=== PATIENT | male | born 1945 | race Caucasian/White ===

== ENCOUNTER 2020-05-05 17:17 | Emergency (ER) | payer OTHER, SELFPAY ==
[2020-05-05 17:18] VITALS: BP 149/80; PULSE 121; RESP 18; TEMP 36.2; O2SAT 93; BMI 35.8
--- NOTE | 2020-05-05 17:32 | EKG12_ITS ---
Test Reason : CP Blood Pressure : / mmHG Vent. Rate : 118 BPM Atrial Rate : 118 BPM P-R Int : 188 ms QRS Dur : 078 ms QT Int : 316 ms P-R-T Axes : 064 -22 035 degrees QTc Int : 442 ms Sinus tachycardia Otherwise normal ECG Confirmed by FRAN ZAMORA, LAKEISHA ([id number]), editorial director KAYLAH PATEL ([id number]) on 05/07/2020 12:43:47 PM Referred By: BB Confirmed By:LAKEISHA PETERS MD
[2020-05-05 17:33] VITALS: O2SAT 95
--- NOTE | 2020-05-05 17:33 | ED.DCSUM_ITS ---
History of Present Illness Chief Complaint: Chest Pain Informant: Patient Onset: Month(s) - few Activity at onset: Rest - Random Timing: Intermittent, Lasts - Several minutes Quality: Aching Location: Left Chest - And into left shoulder but not down arm Current Severity: Gone Maximum Severity: Mild Worsened By: Nothing. Not Worsened By: Breathing Relieved By: - - When I pat my left chest with my right hand. Associated Symptoms: Negative for: Nausea, Vomiting, Diaphoresis, Dyspnea, Cough, Fever, Lightheadedness, Palpitations Narrative: Patient states he has been having brief episodes of nonpleuritic left-sided chest aching for the past several months, without any associated symptoms. He takes his hand and passes left chest for 30-60 seconds and states that seems to help it go away. He has had no palpitations, lightheadedness or near syncopal episodes from this, no other systemic symptoms such as dyspnea, malaise, sweating for no good reason. They do not seem to be triggered by anything, they occur randomly. [facility] and they diverted him to the emergency department. He states he feels fine right now. He denies any recent travel, leg pain or swelling, no history of DVT or PE. He states he occasionally has taken an aspirin or 2 when he gets the discomfort but he does not take it regularly. Prior Similar Symptoms: No Recent Illness/Hospitalization: No CVD Risk Factors: Diabetes, - - Former smoker. Negative for: Hypertension, Hypercholesterolemia, Family History 1' </=55 PE Risk Factors: Negative for: Recent Travel/Surgery, Recenet Immobilization, Prior DVT or PE, Cancer, OCP + Smoking + >/=35 - Past Medical History (1) Cancer, colon Status: Chronic (2) Diabetes mellitus Status: Chronic (3) Dyslipidemia Status: Chronic Past Medical History - Allergies and Home Meds Allergies/Adverse Reactions: Allergies shellfish derived Allergy (Verified 05/05/20 17:17) Anaphylaxis tetanus and diphtheria toxoids [tetanus & diphtheria toxoids] Allergy (Verified 05/05/20 17:17) Rash Primary Care Physician: [facility] Doctor,Out of [NON-STAFF] - Surgical History: - - Right hemicolectomy Lives: Alone Smoking Status: Former smoker - Family History Paternal Family History: Reports: Cancer - His father had colon cancer Review of Systems General: Denies: Chills, Fever, Sweats Eyes: Denies: Visual changes - bilaterally, Diplopia ENT: Denies: Rhinorrhea, Sore throat Cardiovascular: Reports: Chest pain - See HPI. Not present now.. Denies: Palpitations, Heart racing Respiratory: Denies: Dyspnea, Cough, Dyspnea on exertion, Orthopnea Gastrointestinal: Denies: Abdominal pain, Nausea, Vomiting, Diarrhea, Melena, Hematochezia Genitourinary: Denies: Dysuria, Hematuria, Frequency Musculoskeletal: Denies: Myalgias, Back pain, Swelling, Extremity Pain Skin: Denies: Rash, Wounds Neurological: Denies: Headache, Weakness, Numbness Physical Exam Vital Signs/Narrative: Vital Signs Temp Pulse Resp BP Pulse Ox 05/05/20 17:18 97.1 F L 121 H 18 149/80 H 93 Inital Vital Signs reviewed: Yes General: Well nourished, Well developed, No Acute Distress Head: Normocephalic, Atraumatic Eyes: Perrl, EOMI ENT: Moist mucous membranes, No rhinorrhea Neck: Supple, Nontender Cardiovascular: Regular rate, Regular rhythm, No murmurs, Tachycardia Respiratory: No distress, CTA bilaterally, Chest nontender Abdomen: Soft, Nontender, Nondistended, Normal bowel sounds Back: Nontender, Normal Inspection Extremities: Nontender, No edema. Negative for: Calf Tenderness Skin: Normal color, No rash, No Trauma Neurological: Alert, Oriented x3, Cranial nerves II-XII grossly intact, Normal Strength, Normal Sensation Psychological: Normal affect, Normal Mood Diagnostic/Tx/Re-eval Chest X-Ray - ED: 1 View, Read by ED Physician, No Acute Disease Impressions Chest X-Ray 05/05/20 17:38 IMPRESSION: Normal x-ray examination of the chest. Electronically Signed: Niki Patel MD at 18:09 EST Tel , Service support , 05/05/20 17:38 Chest 1 View (Portable) [RAD] Stat Laboratory Results 05/05/20 05/05/20 05/05/20 17:26 17:26 20:16 WBC 9.5 RBC 4.85 Hgb 15.6 Hct 47.4 MCV 97.7 H MCH 32.2 H MCHC 32.9 RDW Std Deviation 41.7 RDW Coeff of Albert 11.6 Plt Count 376 MPV 9.5 Immature Gran % (Auto) 0.300 Neut % (Auto) 72.8 H Lymph % (Auto) 15.3 L Sunflower % (Auto) 8.4 Eos % (Auto) 2.8 Baso % (Auto) 0.4 Absolute Neuts (auto) 6.9 Absolute Lymphs (auto) 1.45 Nucleated RBC % 0 Sodium 134 L Potassium 4.4 Chloride 101 Carbon Dioxide 24.0 Anion Gap 9 BUN 18 Creatinine 1.24 Estim Creat Clear Calc 45.46 Est GFR (MDRD) Af Amer 73 Est GFR (MDRD) Non-Af 61 BUN/Creatinine Ratio 14.5 Glucose 459 H* Calcium 9.0 Troponin I < 0.015 POC Glucose 228 H - Rhythm Strip Rhythm Strip: Sinus Tach Rate: 118 Ectopy: None - EKG Initial EKG Interpretation: No Acute Injury Pattern, Sinus Tachycardia, - - leftward axis Prior: Unchanged Repeat Eval: Pain Free JOSE ROBERTO Risk: Age >/= 65 Score: 1 - Medical Decision Making Patient was observed in the ER, he did not have any recurrent episodes of chest discomfort or any other symptoms that were acute, nor did he have any telemetry events that were notable. He did have significant hyperglycemia so we given insulin and kept an eye on for little while, repeating until it was in the low 200s. I think given his normal cardiac work-up acutely, and the history which I think is low risk for acute coronary syndrome, that he is safe [facility]. His heart score is 3, for age and risk. ED Disposition - Plan for ED Patient: Disposition: Home or Assisted Living Diagnosis: Intermittent left-sided chest pain, Hyperglycemia due to type 2 diabetes mellitus Instructions: ED Chest Pain, Uncertain Cause, ED Diabetic Hyperglycemia Referrals: [facility] Doctor,Out of [NON-STAFF] - As soon as possible ([facility]) Additional Instructions: Take baby aspirin daily.
[2020-05-05] MEDS: Aspirin 81 MG TAB.CHEW 324 MG PO (17:37)
--- NOTE | 2020-05-05 17:38 | RAD_ITS ---
STUDY: X-RAY CHEST REASON FOR EXAM: Male, 74 years old. INTERMITTENT CHEST PAIN LASTING MINUTES X 3 WEEKS. TECHNIQUE: Single AP portable view of the chest. COMPARISON: 06/13/2014. FINDINGS: The lungs are clear and expanded. There is no demonstrated pleural abnormality. Normal size heart. Normal mediastinum and nikia. Normal visualized pulmonary arteries. Normal visualized aortic arch and descending thoracic aorta. Normal visualized thoracic spine. Normal visualized ribs, clavicles, and shoulders. There is no demonstrated abnormality of the visualized soft tissue structures of the upper abdomen. RAD/Chest 1 View (Portable) IMPRESSION: Normal x-ray examination of the chest. Electronically Signed: Niki Patel MD at 18:09 EST Tel , Service support ,
[2020-05-05 17:40] LABS: Absolute Lymphocyte Count 1.45 X10^3/uL (0.83-4.51); Absolute Neutrophil Count 6.9 X10^3/uL (2.0-7.7); Basophil# 0.04 X10^3/uL; Basophil% 0.4 % (0-1); Eosinophil# 0.27 X10^3/uL; Eosinophils% 2.8 % (0-5); Hematocrit 47.4 % (40-54); Hemoglobin 15.6 g/dL (13.0-16.5); Lymphocyte # 1.45 X10^3/ul (4.0); Lymphocyte % 15.3 % (19-41); Mean Corp Hgb Conc 32.9 g/dL (32-36); Mean Corpuscular Hgb 32.2 pg (27.0-32.0); Mean Corpuscular Volume 97.7 fL (80-94); Mean Platelet Vol. 9.5 fl (6.2-12.0); Monocyte% 8.4 % (0-10); NRBC Flagged by Analyzer 0 % (0-5); Neutrophil % 72.8 % (47-70); Platelet Count 376 K/mm3 (150-450); RBC Distribution Width CV 11.6 % (11.6-14.6); RBC Distribution Width SD 41.7 fl (35.1-43.9); Red Blood Count 4.85 M/mm3 (4.6-6.2); White Blood Count 9.5 K/mm3 (4.4-11.0)
[2020-05-05 18:02] LABS: Anion Gap 9 (5-15); BUN 18 mg/dL (7-18); BUN/Creat Ratio 14.5 RATIO (10-20); Chloride 101 mmol/L (98-107); Creatinine, Serum 1.24 mg/dL (0.70-1.30); EST Glomerular Filtration Rate 61 mL/min (>60); Est Glom Filt Rate - Afr Amer 73 mL/min (>60); Estimated Creatinine Clearance 45.46 ml/min; Glucose 459 mg/dL (74-106); Potassium 4.4 mmol/L (3.5-5.1); Sodium Level 134 mmol/L (136-145)
[2020-05-05] MEDS: 0.9% Normal Saline 1,000 ML 999 ML IV (18:05)
[2020-05-05] MEDS: Insulin Lispro 100 UNIT/ML INSULN.PEN 10 UNIT SC (18:10)
[2020-05-05 18:56] VITALS: BP 124/79; PULSE 98; RESP 18; O2SAT 97
[2020-05-05 19:24] VITALS: BP 128/77; PULSE 91; RESP 14; O2SAT 96
[2020-05-05 20:26] LABS: Bedside Glucose 228 mg/dL (70-110)
[2020-05-05 21:11] VITALS: BP 123/74; PULSE 96; RESP 17; O2SAT 95
== END 2020-05-05 21:12 | disposition home or self-care (01) ==
PROVIDERS: Emergency Provider Emergency Medicine
DX: R07.89 Other chest pain (principal); E11.65 Type 2 diabetes mellitus with hyperglycemia; E78.5 Hyperlipidemia, unspecified; Z87.891 Personal history of nicotine dependence; Z79.4 Long term (current) use of insulin; Z79.899 Other long term (current) drug therapy
CPT/HCPCS: 71045; 80048; 82962; 84484; 85025; 93005; 96360; 99285; J7030; A4216

== ENCOUNTER 2021-10-12 01:18 | Emergency (ER) | payer OTHER, SELFPAY ==
[2021-10-12 01:19] VITALS: BP 150/59; PULSE 55; RESP 20; TEMP 36.2; O2SAT 96; BMI 40.9
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
--- NOTE | 2021-10-12 01:38 | EKG12_ITS ---
Test Reason : DYSRYTHMIA Blood Pressure : / mmHG Vent. Rate : 112 BPM Atrial Rate : 112 BPM P-R Int : 178 ms QRS Dur : 086 ms QT Int : 358 ms P-R-T Axes : -07 -11 029 degrees QTc Int : 488 ms Sinus tachycardia with frequent Premature ventricular complexes Otherwise normal ECG Confirmed by FRAN ZAMORA, LAKEISHA ([id number]), commissioning editor KAYLAH PATEL ([id number]) on 10/13/2021 1:07:30 PM Referred By: DIXIE Confirmed By:LAKEISHA PETERS MD
[2021-10-12 02:06] LABS: Absolute Lymphocyte Count 1.26 X10^3/uL (0.83-4.51); Absolute Neutrophil Count 8.3 X10^3/uL (2.0-7.7); Basophil# 0.04 X10^3/uL; Basophil% 0.4 % (0-1); Eosinophil# 0.46 X10^3/uL; Eosinophils% 4.1 % (0-5); Hematocrit 39.8 % (40-54); Hemoglobin 13.7 g/dL (13.0-16.5); Lymphocyte # 1.26 X10^3/ul (0.83-4.51); Lymphocyte % 11.2 % (19-41); Mean Corp Hgb Conc 34.4 g/dL (32-36); Mean Corpuscular Hgb 33.6 pg (27.0-32.0); Mean Corpuscular Volume 97.5 fL (80-94); Mean Platelet Vol. 9.8 fl (6.2-12.0); Monocyte# 1.07 X10^3/uL; Monocyte% 9.5 % (0-10); NRBC Flagged by Analyzer 0 % (0-5); Neutrophil # 8.34 X10^3/uL (2.7-7.7); Neutrophil % 74.4 % (47-70); Platelet Count 274 K/mm3 (150-450); RBC Distribution Width CV 12.3 % (11.6-14.6); RBC Distribution Width SD 44.3 fl (35.1-43.9); Red Blood Count 4.08 M/mm3 (4.6-6.2); White Blood Count 11.2 K/mm3 (4.4-11.0)
[2021-10-12 02:22] LABS: Bacteria 0 SEEN /hpf (None Seen); Mucous, Urine 0 SEEN /hpf (<or=2+); Red Blood Cells-Urine 0 SEEN /hpf (0-5); Squamous Epithelial Cells - UA 0 SEEN /hpf (0-5); White Blood Cells 0 SEEN /hpf (0-5)
[2021-10-12 02:23] LABS: Color, Urine Yellow (Yellow); Glucose, Dipstick 1000 mg/dl (Normal); Ketone-Dipstick Negative (Negative); Leukocyte Esterase-Dipstick Negative /ul (Negative); Nitrite-Dipstick Negative (Negative); Occult Blood-Urine Negative /ul (Negative); Protein-Dipstick 30 mg/dl (Negative); Urine Bilirubin Dipstick Negative (Negative); Urine Clarity Clear (Clear); Urine Urobilinogen Normal (Normal)
[2021-10-12 02:34] LABS: Anion Gap 5 (5-15); BUN 16 mg/dL (7-18); Calcium,Total 8.4 mg/dL (8.5-10.1); Chloride 107 mmol/L (98-107); EST Glomerular Filtration Rate 77 mL/min (>60); Est Glom Filt Rate - Afr Amer 94 mL/min (>60); Estimated Creatinine Clearance 55.52 ml/min; Glucose 295 mg/dL (74-106); Potassium 3.9 mmol/L (3.5-5.1); Sodium Level 137 mmol/L (136-145); Troponin-I HS 18 pg/mL (3.0-78.0)
[2021-10-12 02:38] LABS: Amphetamine Urine VISTA NEGATIVE (<1000 ng/mL); Barbiturate Urine VISTA NEGATIVE (< 200 ng/mL); Benzodiazepine Urine VISTA NEGATIVE (< 200 ng/mL); Cocaine Urine VISTA NEGATIVE (< 300 ng/mL); Ecstacy Urine VISTA POSITIVE (< 500 ng/mL); Methadone Urine VISTA NEGATIVE (< 300 ng/mL); PCP Urine VISTA NEGATIVE (< 25 ng/mL); THC Urine VISTA NEGATIVE (< 50 ng/mL); Vista UDS pH Range 5
[2021-10-12 02:46] LABS: Alcohol, Blood (Medical)-Serum < 3.0 mg/dL
[2021-10-12 02:51] LABS: Bedside Glucose 253 mg/dL (74-106)
[2021-10-12 03:27] VITALS: BP 139/59; PULSE 57; RESP 20; TEMP 35.5
[2021-10-12 03:35] LABS: Calcium Oxalate Crystals Ur RARE /hpf (<or=2+)
== END 2021-10-12 03:27 | disposition home or self-care (01) ==
PROVIDERS: Emergency Provider Emergency Medicine; Visit Provider Emergency Medicine
DX: S09.90XA Unspecified injury of head, initial encounter (principal); E11.65 Type 2 diabetes mellitus with hyperglycemia; E78.5 Hyperlipidemia, unspecified; R81 Glycosuria; F41.9 Anxiety disorder, unspecified; V42.5XXA Car driver injured in collision with two- or three-wheeled motor vehicle in traffic accident, initial encounter; W22.11XA Striking against or struck by driver side automobile airbag, initial encounter; Y92.410 Unspecified street and highway as the place of occurrence of the external cause; Z79.899 Other long term (current) drug therapy; Z79.84 Long term (current) use of oral hypoglycemic drugs; Z87.891 Personal history of nicotine dependence
CPT/HCPCS: 70450; 80048; 80307; 81001; 82077; 82962; 84484; 85025; 93005; 99285

== ENCOUNTER 2023-01-01 21:03 | Emergency (ER) | payer MEDICARE, OTHER, SELFPAY ==
[2023-01-01 21:04] VITALS: BP 183/93; PULSE 106; RESP 18; TEMP 36.8; O2SAT 97
--- NOTE | 2023-01-01 21:34 | RAD_ITS ---
STUDY: X-RAY CHEST REASON FOR EXAM: Male, 77 years old. CAD TECHNIQUE: Single AP portable view of the chest. COMPARISON: 05/05/2020 FINDINGS: The lungs are clear and expanded. There is no demonstrated pleural abnormality. Normal size heart. Normal mediastinum and nikia. Normal visualized pulmonary arteries. Normal visualized aortic arch and descending thoracic aorta. There is a dextroscoliosis of the thoracic spine. Normal visualized ribs, clavicles, and shoulders. There is no demonstrated abnormality of the visualized soft tissue structures of the upper abdomen. RAD/Chest 1 View (Portable) IMPRESSION: Normal x-ray examination of the chest. Electronically Signed: Remigio Juan MD at 22:11 EDT ,
[2023-01-01 21:43] VITALS: BP 167/94; PULSE 110; RESP 13; O2SAT 94
[2023-01-01 21:47] LABS: Absolute Lymphocyte Count 3.45 X10^3/uL (0.83-4.51); Absolute Neutrophil Count 4.3 X10^3/uL (2.0-7.7); Basophil# 0.04 X10^3/uL; Basophil% 0.4 % (0-1); Eosinophil# 0.25 X10^3/uL; Eosinophils% 2.6 % (0-5); Hematocrit 47.6 % (40-54); Hemoglobin 15.8 g/dL (13.0-16.5); Lymphocyte # 3.45 X10^3/ul (0.83-4.51); Lymphocyte % 36.4 % (19-41); Mean Corp Hgb Conc 33.2 g/dL (32-36); Mean Corpuscular Hgb 32.6 pg (27.0-32.0); Mean Corpuscular Volume 98.3 fL (80-94); Mean Platelet Vol. 9.8 fl (6.2-12.0); Monocyte# 1.39 X10^3/uL; Monocyte% 14.6 % (0-10); NRBC Flagged by Analyzer 0 % (0-5); Neutrophil # 4.34 X10^3/uL (2.7-7.7); Neutrophil % 45.8 % (47-70); Platelet Count 356 K/mm3 (150-450); RBC Distribution Width CV 11.9 % (11.6-14.6); RBC Distribution Width SD 43.1 fl (35.1-43.9); Red Blood Count 4.84 M/mm3 (4.6-6.2); White Blood Count 9.5 K/mm3 (4.4-11.0)
[2023-01-01 22:05] LABS: Bacteria 0 SEEN /hpf (None Seen); Mucous, Urine 0 SEEN /hpf (<or=2+); Red Blood Cells-Urine 0 SEEN /hpf (0-5); Squamous Epithelial Cells - UA 0 SEEN /hpf (0-5); White Blood Cells 0 SEEN /hpf (0-5)
[2023-01-01 22:07] LABS: ALB/GLOB Ratio 0.8 RATIO (0.9-2.4); AST(SGOT) 28 U/L (15-37); Alanine Aminotransfer ALT/SGPT 31 U/L (16-61); Albumin, Serum 3.6 g/dL (3.2-5.0); Alkaline Phosphatase 61 U/L (45-117); Anion Gap 9 (5-15); BUN 13 mg/dL (7-18); BUN/Creat Ratio 12.4 RATIO (10-20); Calcium,Total 8.9 mg/dL (8.5-10.1); Chloride 103 mmol/L (98-107); Creatinine, Serum 1.05 mg/dL (0.70-1.30); EST Glomerular Filtration Rate 73 mL/min (>60); Est Glom Filt Rate - Afr Amer 88 mL/min (>60); Globulin 4.5 g/dL (2.2-4.2); Glucose 114 mg/dL (74-106); Potassium 3.5 mmol/L (3.5-5.1); Protein, Total 8.1 g/dL (6.4-8.2); Sodium Level 138 mmol/L (136-145); Troponin-I HS 7 pg/mL (3.0-78.0)
[2023-01-01 22:07] LABS: Color, Urine Yellow (Yellow); Glucose, Dipstick Normal (Normal); Ketone-Dipstick Negative (Negative); Leukocyte Esterase-Dipstick 25 /ul (Negative); Nitrite-Dipstick Negative (Negative); Occult Blood-Urine 10 /ul (Negative); Protein-Dipstick 30 mg/dl (Negative); Specific Gravity, Urine 1.015 (1.002-1.030); Urine Bilirubin Dipstick Negative (Negative); Urine Clarity Clear (Clear); Urine Urobilinogen Normal (Normal)
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
[2023-01-01 23:20] VITALS: BP 126/88; PULSE 105; RESP 20; O2SAT 96
[2023-01-03 08:10] LABS: Bedside Glucose 128 mg/dL (74-106)
== END 2023-01-01 23:21 | disposition home or self-care (01) ==
PROVIDERS: Emergency Provider Emergency Medicine; Visit Provider Emergency Medicine
DX: E11.649 Type 2 diabetes mellitus with hypoglycemia without coma (principal); Z79.4 Long term (current) use of insulin; Z87.891 Personal history of nicotine dependence; R00.0 Tachycardia, unspecified; E78.5 Hyperlipidemia, unspecified
CPT/HCPCS: 71045; 80053; 81001; 82962; 84484; 85025; 93005; 99284; A4216

== ENCOUNTER 2023-03-28 09:14 | Observation (INO) | payer OTHER, SELFPAY ==
[2023-03-28] VITALS (7 sets, daily range): BP systolic 106–160; BP diastolic 66–93; PULSE 99–108; RESP 16–20; TEMP 36.3–36.8; O2SAT 94–100; BMI 40.7; BMI 37.2
--- NOTE | 2023-03-28 09:25 | ED.RN ---
pt mentation assessed at this time. pt oriented but unable to answer questions regarding place. pt also states the year is 2003 and pt states he cannot remember the name of the president
--- NOTE | 2023-03-28 09:53 | RAD_ITS ---
STUDY: X-RAY CHEST REASON FOR EXAM: Male, 77 years old. Anxiety and shortness of breath. TECHNIQUE: Single AP portable view of the chest. COMPARISON: Comparison is made with prior study dated January 01, 2023. FINDINGS: EKG electrodes are seen. Soft tissue density in the medial right upper lobe causing deformity of the trachea. This may be due to enlarged right lobe of the thyroid. Hyperinflation. I suspect a 1.2 cm nodule in the medial right upper lobe. There is no demonstrated pleural abnormality. Normal size heart. Normal mediastinum and nikia. Normal visualized pulmonary arteries. Normal visualized aortic arch and descending thoracic aorta. There are diffuse degenerative changes of the visualized thoracic spine. Normal visualized ribs, clavicles, and shoulders. There is no demonstrated abnormality of the visualized soft tissue structures of the upper abdomen. RAD/Chest 1 View (Portable) IMPRESSION: Questionable 1.2 cm nodule in the medial aspect of the right upper lobe. Compressible soft tissue density in the medial right upper lobe with indentation of the right side of the trachea. Correlation with CT SCAN of the thorax is recommended. Electronically Signed: Harpreet Graves MD at 10:35 EST ,
--- NOTE | 2023-03-28 09:53 | EKG12_ITS ---
Test Reason : GENERAL Blood Pressure : / mmHG Vent. Rate : 100 BPM Atrial Rate : 100 BPM P-R Int : 212 ms QRS Dur : 080 ms QT Int : 356 ms P-R-T Axes : 061 -16 029 degrees QTc Int : 459 ms Sinus rhythm with 1st degree A-V block Otherwise normal ECG Confirmed by FRAN ZAMORA, LAKEISHA ([id number]), assistant editor KAYLAH PATEL ([id number]) on 03/30/2023 9:09:57 AM Referred By: Confirmed By:LAKEISHA PETERS MD
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
[2023-03-28 10:16] LABS: Bacteria 0 SEEN /hpf (None Seen); Mucous, Urine 0 SEEN /hpf (<or=2+); Red Blood Cells-Urine 0 SEEN /hpf (0-5); Squamous Epithelial Cells - UA 0 SEEN /hpf (0-5); White Blood Cells 0 SEEN /hpf (0-5)
[2023-03-28 10:18] LABS: Absolute Lymphocyte Count 1.88 X10^3/uL (0.83-4.51); Absolute Neutrophil Count 4.5 X10^3/uL (2.0-7.7); Basophil# 0.07 X10^3/uL; Basophil% 0.9 % (0-1); Color, Urine Straw (Yellow); Eosinophil# 0.61 X10^3/uL; Eosinophils% 7.5 % (0-5); Glucose, Dipstick 100 mg/dl (Normal); Hematocrit 42.1 % (40-54); Hemoglobin 14.2 g/dL (13.0-16.5); Ketone-Dipstick Negative (Negative); Leukocyte Esterase-Dipstick Negative /ul (Negative); Lymphocyte # 1.88 X10^3/ul (0.83-4.51); Lymphocyte % 23.2 % (19-41); Mean Corp Hgb Conc 33.7 g/dL (32-36); Mean Corpuscular Hgb 32.5 pg (27.0-32.0); Mean Corpuscular Volume 96.3 fL (80-94); Mean Platelet Vol. 9.1 fl (6.2-12.0); Monocyte# 0.99 X10^3/uL; Monocyte% 12.2 % (0-10); NRBC Flagged by Analyzer 0 % (0-5); Neutrophil # 4.51 X10^3/uL (2.7-7.7); Neutrophil % 55.8 % (47-70); Nitrite-Dipstick Negative (Negative); Occult Blood-Urine Negative /ul (Negative); Platelet Count 309 K/mm3 (150-450); Protein-Dipstick Negative (Negative); RBC Distribution Width CV 11.9 % (11.6-14.6); RBC Distribution Width SD 42.1 fl (35.1-43.9); Red Blood Count 4.37 M/mm3 (4.6-6.2); Urine Bilirubin Dipstick Negative (Negative); Urine Clarity Clear (Clear); Urine Urobilinogen Normal (Normal); White Blood Count 8.1 K/mm3 (4.4-11.0)
[2023-03-28 10:31] LABS: D-Dimer Quantitative (DVT/PE) 1.18 FEU/ug/m (0.27-0.49)
--- OUTSIDE RECORDS SUMMARY | 2023-03-28 10:36 | XMS RPT_ITS | CCD ---
Author Name Unknown Address [address] [place] [address] Organization [facility] Results Test Name Value Interpretation Reference Range Facil ity Procedures Date Procedure Procedure Detail Performing Clinician Start: 08-02-2018 Electrocardiogram Summary Purpose Family History No Family History Records FoundNo Family History Records Found Advance Directives No Advanced Directives Records FoundNo Advanced Directives Records Found Additional Source Comments (unrecognized sect ion and content) No Status Records FoundNo Status Records Found INFORMATION SOURCE (unrecogn ized section and content) DATE CREATED AUTHOR AUTHOR'S ORGANIZ ATION 04/26/2019 [facility] FOR RECORDS PERTAINING TO PATIENTS WHO ARE OR HAVE BEEN ENROLLED IN A CHEMICAL DEPENDENCY/SUBSTANCEABUSE PROGRAM, SOME INFORMATION MAY BE OMITTED. This clinical summary was aggregated from multiple sources. Caution should be exercised in using it in the provision of clinical care. This summary normalizes information from multiple sources, and as a consequence, information in this document may materially change the coding, format and clinical context of patient data. In addition, data may be omitted in some cases. CLINICAL DECISIONS SHOULD BE BASED ON THE PRIMARY CLINICAL RECORDS. [facility]. provides no warranty or guarantee of the accuracy or completeness of information in this document.
[2023-03-28 10:37] LABS: Anion Gap 6 (5-15); BUN 15 mg/dL (7-18); BUN/Creat Ratio 17.8 RATIO (10-20); Calcium,Total 8.8 mg/dL (8.5-10.1); Chloride 103 mmol/L (98-107); Creatinine, Serum 0.84 mg/dL (0.70-1.30); EST Glomerular Filtration Rate 93 mL/min (>60); Est Glom Filt Rate - Afr Amer 113 mL/min (>60); Estimated Creatinine Clearance 83.25 ml/min; Glucose 211 mg/dL (74-106); Potassium 3.6 mmol/L (3.5-5.1); Sodium Level 136 mmol/L (136-145); Troponin-I HS 12 pg/mL (3.0-78.0)
--- NOTE | 2023-03-28 11:02 | CT_ITS ---
STUDY: CTA CHEST REASON FOR EXAM: Male, 77 years old. Shortness of breath. History of colon cancer. Abnormal chest radiograph. RADIATION DOSAGE (If Supplied By Facility): CTDIvol = ( 12.66 ) mGy, DLP = ( 570.62 ) mGycm TECHNIQUE: The examination was performed with the intravenous administration of IV 100mL Isovue-370. Post-processing of the angiographic images was performed, with multiplanar reformation and 3D reconstruction. Individualized dose optimization techniques were used for this CT. COMPARISON: Comparison is made with prior chest radiograph done earlier in the day. FINDINGS: There is diffuse enlargement of both lobes of the thyroid gland more prominent on the right side with calcifications. There is a substernal extension of both lobes of the thyroid causing luminal narrowing of the trachea. Normal enhancement of the main pulmonary artery and right and left pulmonary arteries. Normal enhancement of the bilateral peripheral pulmonary arteries. There is no demonstrated pulmonary embolism. Normal thoracic aorta and visualized great vessels. There is no demonstrated aortic dissection. There are calcifications of the coronary arteries. Calcified mediastinal lymph nodes. Normal hilar regions. Normal visualized trachea and bronchi. The lungs are well expanded. There is a 5.7 mm calcified granuloma in the upper medial portion of the left upper lobe. Normal pleura. Normal chest wall structures. There are degenerative changes of thoracic spine. The patient is status post cholecystectomy. Small calcified splenic granulomas. Small hiatal hernia. CT/CTA Chest W/WO Contrast IMPRESSION: Calcified granuloma in the left upper lobe. Diffuse enlargement of both lobes of the thyroid gland worse on the right side with a substernal extension causing narrowing of the tracheal lumen as described. Electronically Signed: Harpreet Graves MD at 12:23 EST ,
[2023-03-28] MEDS: 0.9% Normal Saline (1000mL) 1,000 ML 150 ML IV ×2 (11:38→17:49)
--- NOTE | 2023-03-28 12:58 | CM.ED ---
Social Work SW asked to speak with patient in cat scan due to agitation and being upset. SW came to cat scan and followed patient back to room. SW introduced self and role to patient. Pt angry and cursing about how nobody cares and people just want his money. Pt reports, Nothing matters anymore, just what I can give people. Pt feels like people take advantage of him, the hospital just wants his money like everyone else and that no one cares about him. Pt initially agitated. SW provided emotional support and spent time with patient and exploring needs. Pt lives independently and when asked about mobility he reports, sometimes I fall sometimes I don't. Pt initially had told EMS he cannot care for himself but now says he can, EMS had recommended placement or home health. Pt reports things have become a mess because he was ill and no one will help him. Pt is a [place] and deployed to [place] [phone]. Pt is oriented without confusion. Pt presents as depressed and SW informed patient of this and whether he has mental health medication or resources. Pt denies the need for such. Pt reports he is concerned about how cold his home is and about paying lot rent. Pt reports he owns his trailer but has to pay lot rent. SW discussed resources for assistance. Pt presents as reluctant to ask for help. financial or otherwise. Pt is presents as very lonely and reports everyone just uses me for what I can give them and I have nothing now. No one cares about me or will help. 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 Pt is more relaxed and receptive after speaking and being heard. SW discussed the need for extra assistance and patient waivers about his ability to care for self. It is unclear whether patient will be admitted or discharged at this time. ELEONORA called [place] SW and left a message, patient would benefit from assistance physically, in the home, and financially. As today is a government holiday it is unlikely [facility] will return call until tomorrow. SW will provide resources and if patient is discharged, transportation will be arranged. Plan: ELEONORA to follow for needs admission -vs- discharge. Haydee Calix MATERIAL HANDLING WAREHOUSE SUPERVISOR, DEBT RECOVERY OFFICER
[2023-03-28 13:31] LABS: Thyroid Stim Hormone (TSH) 0.57 uIU/mL (0.358-3.74)
--- NOTE | 2023-03-28 13:41 | NURSING ---
DR FANTASMA PETTY
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
--- OUTSIDE RECORDS SUMMARY | 2023-03-28 15:39 | XMS RPT_ITS | CCD ---
Author Name Unknown Address [address] [place] [address] Organization [facility] Results Test Name Value Interpretation [...] DATE CREATED AUTHOR AUTHOR'S ORGANIZ ATION 04/26/2019 [facility] FOR RECORDS PERTAINING TO PATIENTS WHO [...] BE BASED ON THE PRIMARY CLINICAL RECORDS. [facility] [employer] [facility]. provides no warranty or guarantee of the accuracy or completeness of information in this document.
--- NOTE | 2023-03-28 16:01 | ED.RN ---
NO ADMISSION ASSESSMENT COMPLETED DUE TO THIS NURSE BEING BUSY WITH OTHER ED PATIENTS AND ONE CONSCIOUS SEDATION PATIENT. MED REC ALSO NOT COMPLETE.
--- NOTE | 2023-03-28 16:15 | NURSING ---
CALLED KAITY LOZANO AND LEFT ALL THE INFO NEEDED.
[2023-03-28] MEDS: 0.9% Saline Lock 10 ML Syringe IV (17:49)
[2023-03-28] MEDS: Insulin Lispro 100 UNIT/ML INSULN.PEN SC (18:01)
[2023-03-28 19:17] LABS: Bedside Glucose 382 mg/dL (74-106)
[2023-03-28 19:38] LABS: Hemoglobin A1c 8.7 % (3.8-5.6)
[2023-03-28] MEDS: Insulin Glargine-YFGN 100 UNIT/ML Pen 45 UNIT SC (21:36)
[2023-03-28] MEDS: Enoxaparin 40 MG/0.4 ML Syringe SC (21:36)
[2023-03-28 22:42] LABS: Bedside Glucose 336 mg/dL (74-106)
[2023-03-29] MEDS: 0.9% Normal Saline (1000mL) 1,000 ML 150 ML IV ×4 (03:15→23:17)
[2023-03-29 04:00] VITALS: BP 140/79; PULSE 93; RESP 18; TEMP 36.6; O2SAT 96
[2023-03-29 08:01] VITALS: O2SAT 95
[2023-03-29] MEDS: Enoxaparin 40 MG/0.4 ML Syringe SC ×2 (09:40→22:30)
[2023-03-29 10:00] VITALS: BP 136/82; PULSE 93; RESP 13; TEMP 36.3; O2SAT 96
[2023-03-29 10:08] LABS: Bedside Glucose 143 mg/dL (74-106)
--- NOTE | 2023-03-29 11:36 | CASEMGMT ---
Social Work Pt walked 230 feet independently w/PT, will not qualify under insurance for SNF. SW called the [place], message left for ELEONORA Yadav. SW attempted to meet w/pt, he is asleep. ELEONORA will try again shortly. MIRTHA Locke
--- NOTE | 2023-03-29 11:57 | CASEMGMT ---
Received tc from Kiki at the [facility] center, she was updated on pt status. She states pt is not service connected. States pt primary care is Tanya Rodriguez at the [facility] at [phone]. Pt has a KAL Barron at [id number] and a ELEONORA Espino at the same phone number. Updated SW.
--- NOTE | 2023-03-29 12:16 | CASEMGMT ---
Social Work SW attempted to speak w/pt in room for resources. Pt is visibly frustrated, walking back to the bed from the bathroom. Pt states everyone just keeps calling and wanting to speak w/him and he just wants to sleep, did not sleep well last night, states is not breathing well either. SW explained was coming in just to check on him. Pt is pulling at his hair stating he doesn't want to talk now. Pt states he is not going to talk to this SW at this time. Pt got back into bed, SW turned off light above pt head. SW offered a warm blanket, pt did not respond to SW, in bed w/eyes shut. SW will attempt to speak w/pt again later today as time allows. MIRTHA Locke
--- NOTE | 2023-03-29 12:35 | CASEMGMT ---
Social Work SW spoke with [place] psychiatric social worker, Shyam. Pt is service connected and could have a home health aide if medically needed. Pt could also have a primary visit to the home if considered necessary. [place] SW reports she will call his cell phone to discuss needs and possible home health assistance. She also reports he sees Dr. Rodriguez for primary care and has regular psychiatric services with a psychiatrist but did not disclose mental health concerns. [place] SW did report if his concerns are mental health related then he may not qualify for a home health aide. She questioned whether APS is appropriate and informed her they have been contacted. She reports APS can also contact them and they frequently will if [facility] services are needed. SW additionally contact [facility] for assistance financially. [facility] are familiar with the patient and said they can help him financially with whatever he needs and he should call them to make an appointment when he is well, . Haydee Calix SPIRITUAL ADVISOR, DIRECTOR OF NATIONAL SALES
[2023-03-29] MEDS: Insulin Lispro 100 UNIT/ML INSULN.PEN SC ×2 (14:22→18:32)
[2023-03-29 14:45] LABS: Bedside Glucose 227 mg/dL (74-106)
[2023-03-29 14:59] VITALS: BP 136/61; PULSE 87; RESP 14; TEMP 36.6; O2SAT 98
--- NOTE | 2023-03-29 15:08 | NURSING ---
LUNCH BLOOD SUGAR WAS 227, NOT 221 CHARTED ON MAY.
--- NOTE | 2023-03-29 16:10 | CASEMGMT ---
Social Work SW spoke w/RN, pt is more agreeable to speak w/SW at this time. SW met w/pt in room. Pt in bed, willing to speak w/SW however not opening eyes much to speak w/SW. SW completed the SDOH assessment w/pt. Pt states he does have his heat on at home, it's set at 64. SW explained to pt that he should follow up w/the SW with the [facility], [facility], and also with the local [facility]. SW explained they both may be able to help him w/help at home, and with getting financial assist for the lot cost. SW gave pt the number for the local [facility], also left with him information for [employer], [facility], [facility], and utility assist through [facility]. SW asked pt if he feels he can manage at home. SW explained that he did walk well with therapy and insurance would not cover a mcfp. Pt states he does not know what to expect when he goes home. SW inquired what he means, he states he was sick when he left. SW asked further, pt states he had diarrhea. He states he does not know what he is walking into at home. SW asked if his step daughter would help him clean up, he is not sure, but is okay w/SW calling Lillian. SW inquired a few times what he thinks about going home, pt continues to make comments about not sure what he is walking into at home. SW asked pt about transportation, pt states he has a van, not sure what happened to it. SW inquired if it is in his driveway, pt states yes, and he asked a neighbor to keep an eye on it. He mentioned also that his van is clean and he may sleep in it. SW asked pt how he is feeling mentally. SW inquired if he thought he would harm himself. Pt states he just doesn't want to keep doing this over and over. SW inquired again if pt would be safe at home, if he would harm himself, pt denies. SW asked pt about counseling, pt has been in counseling, he is not sure if it would be helpful. SW explained will call his stepdaughter and speak to the doctor, pt likely to be discharged tomorrow. SW called Lillian, message left, she called back. SW explained to Lillian that pt agreeable to have SW call her to speak w/her. She is not POA, states pt does have a sister and he has not done POA papers. She states he has talked about doing them but has not completed the documents. ELEONORA asked Lillian about pt at home, she states pt has been having more difficulty the last 3 years, she is wondering if he is starting to show signs of dementia. She states up until three years ago he was managing fine. ELEONORA explained that pt will likely be discharged tomorrow, but he seems concerned of the state of his home. She states she and a friend have tried to help get pt's home cleaned up and pt gets upset. SW explained he seems concerned as he had diarrhea before he came in. She states she will pick him up tomorrow to bring him home, and can help clean up the home if he will allow it. ELEONORA spoke w/her about helping pt to follow up w/the VA, gave her the numbers for both the SW and the local VA agency, explained that they may be able to help with getting aides in the home, and with cost of the lot as pt has mentioned concern about this. ELEONORA explained it seems pt gets overwhelmed and then can't follow through. Lillian agreed with this. ELEONORA explained pt does not qualify for SNF at this time, at some point pt may need mcfp placement and may need to look into applying for Medicaid. Lillian states understanding. Lillian just asks that we call her when he is discharged and she will come get pt. She plans to come visit this evening as well. SW will follow up tomorrow, will let APS know when pt is being discharged so they can follow up w/pt, and give any additional resources as needed. MIRTHA Locke
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
--- NOTE | 2023-03-29 17:01 | CASEMGMT ---
Met with?patient to complete MURILLO form. MURILLO form explained to patient who voiced understanding and signed form. Original form placed in pt?s chart and copy provided to?patient. Peggy Valladares, Discharge Planning Asst
[2023-03-29 19:02] LABS: Bedside Glucose 202 mg/dL (74-106)
[2023-03-29 20:00] VITALS: BP 146/94; PULSE 102; RESP 18; TEMP 36.6; O2SAT 99
[2023-03-29] MEDS: Insulin Glargine-YFGN 100 UNIT/ML Pen 45 UNIT SC (22:30)
[2023-03-29 22:51] LABS: Bedside Glucose 219 mg/dL (74-106)
[2023-03-30 05:33] VITALS: BP 145/93; PULSE 92; RESP 18; TEMP 36.6; O2SAT 97
[2023-03-30] MEDS: 0.9% Normal Saline (1000mL) 1,000 ML 150 ML IV (05:54)
[2023-03-30 08:08] VITALS: O2SAT 97
[2023-03-30 09:02] VITALS: BP 132/65; PULSE 86; RESP 18; TEMP 37; O2SAT 99
--- NOTE | 2023-03-30 09:05 | NURSING ---
call placed to dietary as diabetic patient hasn't received a tray.
--- NOTE | 2023-03-30 10:06 | DCINST_ITS ---
Discharge Instructions Diet Discharge Diet: 1800 Calorie Control Diet Activity Discharge Activity: Return to Normal Activity Weight Bearing Status: Full weight bearing Follow Up Care Test Results: Test results from this visit will be discussed in further detail at your follow- up appointment, if applicable. Discharge Plan Admission Admit Date/Time: 03/28/23 14:32 Primary Reason for Your Visit: Debility Attending Provider: Fahad Nguyen Primary Care Provider: [facility] Consulting Providers: Shaylee Moore Instructions Additional Instructions / Restrictions: Given the large thyroid that we will need further evaluation. He can follow-up with the PA for this or follow-up with Dr. Jaycob Taylor whom I gave you the referral for. Discharge Orders/Prescriptions Prescriptions: No Action pravastatin 40 MG tablet 40 mg PO QHS Patient Comments: cholesterol per [facility] insulin glargine [Lantus Solostar U-100 Insulin] 100 UNITS/ML insulin pen 45 unit subcut QHS Patient Comments: insulin per [place] aspirin 81 MG tablet,chewable 81 mg PO PRN Patient Comments: heart health per [place] cinnamon bark [Cinnamon] 500 mg capsule 500 mg PO DAILY chromium picolinate 400 mcg tablet 400 mcg PO DAILY vitamin B complex [B Complex-Vitamin B12] Tablet 1 tab PO DAILY insulin aspart U-100 [Novolog FlexPen U-100 Insulin] 100 unit/mL (3 mL) insulin pen 14 unit subcut TID PRN Patient Comments: patient unsure of sliding scale, states he usually just takes 14 units if he's not sick Rx Instructions: sliding scale Referrals / Follow Up: Manav Taylor MD [Med Staff - Courtesy Staff] - 3-5 Days (Follow-up with Dr. Taylor regarding your enlarged thyroid gland) [place] [Primary Care Provider] - Within 1 Month (Follow-up with the PA regarding your enlarged thyroid gland) Disposition Disposition (needs filled in before D/C Order can be placed): Home, Self Care
[2023-03-30 10:09] LABS: Bedside Glucose 119 mg/dL (74-106)
[2023-03-30 10:09] LABS: Bedside Glucose 57 mg/dL (74-106)
--- NOTE | 2023-03-30 10:13 | DS.PCM_ITS ---
Providers Date of Admission: 03/28/23 Date of Discharge: 03/30/23 Primary Care Physician: [facility] Reason For Visit: FAILURE TO THRIVE Diagnosis Discharge Diagnosis (1) Debility: Status: Acute Code(s): R53.81 - Other malaise Plan 1. Debility-patient cannot tell me if he wants to go home or go to a retirement facility, he did well with physical therapy and he would not qualify to go to a intermediate unless he paid for it. Patient was talked to several times during the day by social human services assistants and case management, he was not able to make a decision going forward, his stepdaughter was contacted-she is his closest contact besides his sister, she states that she will take the patient home t omorrow and survey his environment to make sure that it is safe and clean. Adult protection services will be following up with the patient. #2 type 2 diabetes-patient will remain on his present medications, blood sugars will be monitored via fingerstick blood sugars and sliding scale insulin will be given as necessary #3 hyperlipidemia-patient is on pravastatin #4 enlarged thyroid gland-patient will need follow-up with the [facility] or with his squaring machine operator regarding this as an outpatient Total clinical time spent by myself addressing the patient's medical issues, reviewing all of his data, and collaborating with patient's care team: 35 minutes Medications at Discharge Home Medications insulin glargine 100 unit/mL (3 mL) subcutaneous pen (Lantus Solostar U-100 Insulin) 45 unit subcut QHS 06/08/14 pravastatin 40 mg tablet 40 mg PO QHS 06/08/14 aspirin 81 mg chewable tablet 81 mg PO PRN pain 06/09/14 insulin aspart U-100 100 unit/mL (3 mL) subcutaneous pen (Novolog FlexPen U-100 Insulin aspart) 14 unit subcut TID PRN 01/01/23 chromium picolinate 400 mcg tablet 400 mcg PO DAILY 03/28/23 cinnamon bark 500 mg capsule (Cinnamon) 500 mg PO DAILY 03/28/23 vitamin B complex (B Complex-Vitamin B12 tablet) 1 tab PO DAILY 03/28/23 Hospital Course Operations None Procedures None Summary of Care Provided Minutes Spent on Discharge: 30 Hospital Course: 77-year-old white male was seen in the emergency room at [facility] after coming in with complaints of shortness of breath and anxiety, initially the emergency room physician talked with the patient and he agreed to consider going to a retirement facility because he was unable to take care of himself. Patient's labs reveal a normal CBC, chemistry panel was remarkable for glucose of 211, and CT of the chest showed calcified granuloma in the left upper lobe and diffuse enlargement of both lobes of the thyroid gland worse on the right side with a substernal extension causing narrowing of the tracheal lumen. Patient was admitted to [place] [address], he was seen by PT and OT, patient became agitated at times and would not talk to staff, he complained of stress , he could not tell social human services assistants if he wanted to go home or go to a nursing facility. Patient's stepdaughter was contacted and stated that she preferred to take him home to his home and clean up the home and if she needed to, she will bring him back to the hospital. On 03/30/2023, patient was seen and examined:alert, oriented x3, no apparent distress and average body habitus Constitutional Narrative: Patient is belligerent and argumentative during the time my examination General Appearance: cooperative, well kempt and well developed Orientation / Consciousness: awake, oriented to person, oriented to place and oriented to time HEENT normocephalic, head/scalp atraumatic and moist oral mucous membranes Eyes PERRL, EOMs intact bilaterally and conjunctivae normal Neck supple, no JVD, thyroid normal and no carotid bruits General: trachea midline Resp normal respiratory effort, no retractions, no use of accessory muscles and clear to auscultation bilaterally Auscultation: Negative for rales, rhonchi or wheezes Cardio regular rate, regular rhythm, S1 normal heart sound, S2 normal heart sound, no murmurs, no rub and no gallops GI normal to inspection, nondistended, normoactive bowel sounds, soft to palpation, non-tender and non-distended Extremity no clubbing, cyanosis or edema Skin no rashes or lesions noted General Skin Exam: no breakdown Neuro oriented x3, CN's II-XII intact bilaterally, moves all extremities, no focal motor deficits and no sensory deficits noted Sensorium / Orientation: awake and alert Speech: speech normal Psych Psych Narrative: Patient appears belligerent and argumentative, he is yelling in a loud voice and then apologizing. Physical Exam Narrative alert, oriented x3, no apparent distress and average body habitus Constitutional Narrative: Patient is belligerent and argumentative during the time my examination General Appearance: cooperative, well kempt and well developed Orientation / Consciousness: awake, oriented to person, oriented to place and oriented to time HEENT normocephalic, head/scalp atraumatic and moist oral mucous membranes Eyes PERRL, EOMs intact bilaterally and conjunctivae normal Neck supple, no JVD, thyroid normal and no carotid bruits General: trachea midline Resp normal respiratory effort, no retractions, no use of accessory muscles and clear to auscultation bilaterally Auscultation: Negative for rales, rhonchi or wheezes Cardio regular rate, regular rhythm, S1 normal heart sound, S2 normal heart sound, no murmurs, no rub and no gallops GI normal to inspection, nondistended, normoactive bowel sounds, soft to palpation, non-tender and non-distended Extremity no clubbing, cyanosis or edema Skin no rashes or lesions noted General Skin Exam: no breakdown Neuro oriented x3, CN's II-XII intact bilaterally, moves all extremities, no focal motor deficits and no sensory deficits noted Sensorium / Orientation: awake and alert Speech: speech normal Psych Psych Narrative: Patient appears belligerent and argumentative, he is yelling in a loud voice and then apologizing. Weight / BMI Weight Weight: 107.9 kg Body Mass Index (BMI) 37.2 ABG / Lab / Microbiology Data 03/28/23 10:09 03/28/23 10:09 Laboratory: Laboratory Results - last 24 hr 03/29/23 14:19: POC Glucose 227 H 03/29/23 18:30: POC Glucose 202 H 03/29/23 22:29: POC Glucose 219 H 03/30/23 09:06: POC Glucose 57 L 03/30/23 09:28: POC Glucose 119 H Microbiology: Microbiology 03/28/23 10:09 Mucosa - Nose SARS-CoV-2, Influenza & RSV (PCR) - Final D/C Instructions Discharge Diet: 1800 Calorie Control Diet Weight Bearing Status: Full weight bearing Meaningful Use Info Meaningful Use Diagnoses (Choose all that apply): None applicable Discharge Plan Admission Admit Date/Time: 03/28/23 14:32 Primary Reason for Your Visit: Debility Attending Provider: Fahad Nguyen Primary Care Provider: [facility],[place] Consulting Providers: Shaylee Moore Instructions Additional Instructions / Restrictions: Given the large thyroid that we will need further evaluation. He can follow-up with the MA for this or follow-up with Dr. Jaycob Taylor whom I gave you the referral for. Discharge Orders/Prescriptions Prescriptions: No Action pravastatin 40 MG tablet 40 mg PO QHS Patient Comments: cholesterol per [facility] insulin glargine [Lantus Solostar U-100 Insulin] 100 UNITS/ML insulin pen 45 unit subcut QHS Patient Comments: insulin per [facility] aspirin 81 MG tablet,chewable 81 mg PO PRN Patient Comments: heart health per [place] cinnamon bark [Cinnamon] 500 mg capsule 500 mg PO DAILY chromium picolinate 400 mcg tablet 400 mcg PO DAILY vitamin B complex [B Complex-Vitamin B12] Tablet 1 tab PO DAILY insulin aspart U-100 [Novolog FlexPen U-100 Insulin] 100 unit/mL (3 mL) insulin pen 14 unit subcut TID PRN Patient Comments: patient unsure of sliding scale, states he usually just takes 14 units if he's not sick Rx Instructions: sliding scale Referrals / Follow Up: Manav Taylor MD [Med Staff - Courtesy Staff] - 3-5 Days (Follow-up with Dr. Taylor regarding your enlarged thyroid gland) [facility] [Primary Care Provider] - Within 1 Month [facility] Disposition Disposition (needs filled in before D/C Order can be placed): Home, Self Care Charges/Coding Visit Charges Inpatient E&M: 93813 Disch Hosp
--- NOTE | 2023-03-30 11:10 | NURSING ---
in to round on patient and give meds. pt found to be anxious and agitated stating he did not know the plan. emotional support given stood and talked with patient for approx. 20minutes at which point patient discussed his social situations and frustrations. pt's step daughter anoop then to room stating she was here to take him home, social welfare administrator rubén also to room.
--- NOTE | 2023-03-30 11:53 | CASEMGMT ---
Social Work SW met with pt's step daughter Denia Momin. Denia plans to take pt home today. Pt Denia spoke with pt's sister Manisha who is agreeable for pt to come to her home today and spend the night. Denia will work on cleaning up pt's home and getting the heat on. Per Denia, the heat in the home works however pt does not want to pay for it. SW provided Denia with [facility] [employer] information for the HEAP and PEPP programs. Denia to call [facility] [employer]. SW also encouraged [facility] to make an appointment and talk to care team regarding home health aids and financial assistance. Denia agreeable. SW met with pt in the room. Pt sitting on edge of the bed. Pt difficulty focusing on the conversation and becoming frustrated and angry easily and displaying tangential speech pattern. Pt not accepting of help or information from SW. Pt is willing to be discharged into the care of Denia. ALDO to ARASELI Howe to update on discharge. ALDO to Nicole in [facility] and referral made for followup services at home. NEL Arana
[2023-03-30 11:55] VITALS: BP 150/99; PULSE 100; RESP 18; TEMP 36.9; O2SAT 98
--- NOTE | 2023-03-30 12:05 | NURSING ---
dc instructions reviewed with patient and pt's family anoop after lulu tan saw. family member asking about hospital program to assist with setting up home meds. pt requesting to have meal sent home with him. dietary called with request. discussed family request with LULU tan.
--- NOTE | 2023-03-31 15:34 | CASEMGMT ---
Social Work Return call from ELEONORA Howe at [place] and fax number obtained. ELEONORA made referral for home aids and [facility] completed and faxed to [place]. NEL Arana
== END 2023-03-30 12:20 | disposition home or self-care (01) ==
LOC: ED 14:38 → MS3 15:27
PROVIDERS: Admitting Provider Internal Medicine; Emergency Provider Emergency Medicine; Visit Provider Internal Medicine
DX: R53.81 Other malaise (principal); E66.01 Morbid (severe) obesity due to excess calories; Z68.41 Body mass index [BMI] 40.0-44.9, adult; E11.9 Type 2 diabetes mellitus without complications; Z79.4 Long term (current) use of insulin; Z60.9 Problem related to social environment, unspecified; Z79.84 Long term (current) use of oral hypoglycemic drugs; F41.9 Anxiety disorder, unspecified; R62.7 Adult failure to thrive; I44.0 Atrioventricular block, first degree; E78.5 Hyperlipidemia, unspecified; Z87.891 Personal history of nicotine dependence; E04.9 Nontoxic goiter, unspecified; R06.02 Shortness of breath; Z79.82 Long term (current) use of aspirin; Z79.899 Other long term (current) drug therapy; R29.6 Repeated falls; M19.90 Unspecified osteoarthritis, unspecified site
CPT/HCPCS: 71045; 71275; 80048; 81001; 82962; 83036; 84443; 84484; 85025; 85379; 87631; 93005; 94668; 96360; 96361; 97161; 97165; 97802; 99221; 99285; J7030; Q9967; A4216; G0378